=== PATIENT | male | born 1995 | race Two or more races ===

== ENCOUNTER 2018-06-15 14:52 | Emergency (ER) | payer OTHER ==
[2018-06-15 14:57] VITALS: BP 150/68
--- NOTE | 2018-06-15 14:59 | EDPHY ---
General Time Seen by Provider: 06/15/18 14:59 Narrative: CLINICAL IMPRESSION: Cutaneous wart left foot ASSESSMENT/PLAN: Patient is a 22-year-old male with no significant medical history who presents to the emergency department with a painful lesion to his outer left foot that has been present for 2 month. Physical examination reveals a 1 cm raised circular lesion on the outer aspect of the left foot consistent with cutaneous wart. There was no evidence of cellulitis, abscess, necrotizing skin infection or deep space infection. Patient has not trialed any topical medications, recommended starting topical salicylic acid and following up with Dermatology. Referral given, return precautions discussed. CHIEF COMPLAINT: Painful lesion left foot HPI: Patient is a 22-year-old male with no significant medical history who presents to the emergency department for evaluation of a painful lesion on his left foot that has been present for 2 months. Patient reports approximately 2 months ago he started to notice a small skin lesion on the lateral aspect of his left foot , it has been growing in size and becoming more painful. He has not had evaluated, no history of similar episodes in the past. He denies any redness or drainage. He has not tried anything for pain. He denies any other concern or complaint. ROS: Otherwise negative, please see HPI. PHYSICAL EXAM: General Appearance: Well-developed, well-appearing and in no acute distress. Respiratory: There are no retractions, lungs are clear to auscultation. Cardiac: Regular rate and rhythm, no murmurs or gallops. Gastrointestinal: Abdomen is soft, nontender, bowel sounds normal, no masses/ hernia, no rigidity, guarding or focal peritoneal findings. Skin: Warm, dry. Patient with a 1 cm raised, circular lesion on the lateral aspect of his distal left foot, proximal to the left 5th MCP. There is some callusing circumferentially around the lesion. He has associated tenderness to palpation. There is no surrounding erythema, fluctuance or drainage. No other foot tenderness. Neuro: Alert and oriented x3, Cranial nerves 2-12 grossly intact. No focal deficit. Psych: Normal mood, normal affect. No agitation. MEDICAL DECISION MAKING: Patient was seen independently. Secondary supervising physician at time of evaluation was Dr. Moody, he did not evaluate this patient. Diagnosis: Cutaneous wart. Summary: See Assessment and Plan for summary of ED visit Review / Summarize previous medical records: Yes Discussed patient with another provider: Yes Patient Progress: Stable, discharge. - History Smoking Status: Never smoked - Objective Vital Signs: Initial Vital Signs Temperature (C) 36.8 C 06/15/18 14:54 Heart Rate 66 06/15/18 14:54 Respiratory Rate 18 06/15/18 14:54 Blood Pressure 150/68 H 06/15/18 14:54 O2 Sat (%) 97 06/15/18 14:54 O2 Delivery Mode Room Air Allergies/Adverse Reactions: No Known Allergies Allergy (Unverified 06/15/18 14:54) Home Medications: Medication Instructions Recorded NK [No Known Home Meds] 06/15/18 Departure - Departure Disposition: Home, Routine, Self-Care Clinical Impression: Verruca vulgaris Condition: Good Instructions: Common Wart (ED) Additional Instructions: DISCHARGE INSTRUCTIONS FROM YOUR PROVIDER Thank you for visiting our emergency department today. Please keep in mind that discharge from the emergency department does not mean that there is nothing wrong - it simply means that we have not identified an emergency condition that requires further evaluation or treatment in the hospital. You have been given a referral for a metal door assembler, please call to schedule an appointment for follow-up next week. In the meantime you can purchase [id number] medications for wart removal such as compound W or Dr. Leos's. Salicylic acid is the main ingredient that you should be looking for. You may require additional procedures or even excision which is why I would like you to follow up with Dermatology. Return for significantly worsening pain, redness, drainage or for any other concerning symptom. For pain control: You may take Tylenol, I recommend 500-1000 mg every 6-8 hours as needed. Take with food and a full glass of water. Stop taking if this is upsetting you stomach. Do not exceed 4000 mg in a 24 hr period. You may also take ibuprofen, recommend 400 mg every 6 hr. Take with food and a full glass of water. Stop taking if this upsets your stomach. Do not exceed 2400 mg in a 24 hr period. People present with illnesses and injuries in different ways, and it is always possible that we have missed something. Again, thank you for choosing our emergency department. We hope that you feel better. Referrals: CRUZ KUO [Medical Doctor] - 2-3 days, call for appt.
== END 2018-06-15 15:27 | disposition home or self-care (01) ==
DX: B07.9 Viral wart, unspecified (principal)